=== PATIENT | female | born 1980 | race Caucasian/White ===

== ENCOUNTER 2024-11-01 10:35 | Emergency (ER) | payer SELFPAY ==
[2024-11-01] MEDS ORDERED: Prochlorperazine 10 MG/2 ML VIAL ONE (11:55)
[2024-11-01] MEDS ORDERED: diphenhydrAMINE 50 MG/ML VIAL ONE (11:55)
[2024-11-01] MEDS ORDERED: Ketorolac Tromethamine 30 MG (1 mL) VIAL ONE (11:55)
[2024-11-01 12:27] LABS: Pregnancy Test - Urine (BHCG) Negative (Negative); Pregu Control Background? CLEAR/WHITE (CLR/WHITE); Pregu Control Bar Appear? YES (CONTROL BAR); Specific Gravity 1.017 (1.002-1.036)
== END 2024-11-01 13:09 | disposition home or self-care (01) ==
LOC: ERS 10:35
DX: G43.909 Migraine, unspecified, not intractable, without status migrainosus (principal)
CPT/HCPCS: 81025; 96374; 96375; J0780; J1200; J1885